=== PATIENT | male | born 1975 | race African-American/Black ===

== ENCOUNTER 2018-07-26 09:35 | Emergency (ER) | payer OTHER ==
[~2018-07-26] VITALS: Ht 190.5 cm; Wt 127.0 kg
[2018-07-26] MEDS ORDERED: LISINOPRIL10 MG PO (09:49)
[2018-07-26 10:26] VITALS: BP 146/101
[2018-07-26] MEDS ORDERED: COLCHICINE0.6 MG PO (10:26)
[2018-07-26] MEDS ORDERED: MOBIC15 MG PO (10:26)
[2018-07-26] MEDS ORDERED: NORCO 5-325 TA1 EACH PO (10:26)
== END 2018-07-26 10:34 | disposition home or self-care (01) ==
LOC: ER 09:35
DX: M10.9 Gout, unspecified (principal)

== ENCOUNTER 2019-07-03 04:59 | Emergency (ER) | payer OTHER ==
[~2019-07-03] VITALS: Ht 193 cm; Wt 127.0 kg
--- NOTE | ~2019-07-03 | EMS ---
[address] [address] EMS Patient Care Report Name: NADIR KNIGHT Room #: DEP LUCINA Napier#: [id number] Admission: 07/03/19 ������������������ Attend Phys: Discharge: 07/03/19 ������������������ Date of : 73 Report #: [id number] THIS REPORT FOR: //name// Report Transmitted: 07/06/2019 09:04 EMS Care Summary [facility] Incident [id number] @ 07/03/2019 04:27 Incident Location [address] [place] [address] Patient NADIR KNIGHT Male, 44 Years 1975 Patient Address [address] [place] [address] Patient History Hypertension, Patient Allergies No known allergies, Patient Medications Lisinopril, Chief Complaint "I woke up the dizzy." Disposition Transported No Lights/[place] Dispatch Reason Sick Person Transported To [facility] Narrative "I woke up dizzy." [facility] [address] [place] [address] EMS Patient Care Report Name: NADIR KNIGHT Room #: DEP ER TruptiBrenna#: [id number] Admission: 07/03/19 ������������������ Attend Phys: Discharge: 07/03/19 ������������������ Date of : 73 Report #: [id number] Dispatched to this location code 3 for a male PT with complaints of feeling dizzy. Arrive on scene to find the PT sitting in a chair with at side. PT reports he went to bed around "11 PM." He reports he got up around "1 AM" to use the restroom and reports he felt a little "off" at that time. PT went back to bed and then woke up again around "4:30 AM." He reports he woke up dizzy. PT reports he feels like he is spinning in the room. He denies any recent sinus or ear infections. PT denies any recent falls or trauma. PT denies any recent fevers. PT denies any weakness or numbness to one side of his body. PT denies any visual problems. PT denies any chest pain or SOA. PT denies any pain. Initial Vitals @04:50P: 91,R: 18,BP: 155/90,GCS: 15,SpO2: 100,Revised Trauma: 12, @04:43MI Suspected: false @04:41P: 88,R: 18,BP: 155/86,Pain: 0/10,GCS: 15,Glucose: 104,SpO2: 100,Revised Trauma: 12, Assessments @04:48MENTAL:Person Oriented,Time Oriented,Event Oriented,Place Oriented,SKIN:HEENT:Head/Face: No Abnormalities,Neck/Airway: No Abnormalities,LUNG SOUNDS:General: No Abnormalities,ABDOMEN:General: No Abnormalities,PELVIS//GI:EXTREMITIES:PULSE:NEURO: Impression Dizziness Procedures @04:4312-Lead ECG Timeline 04:26,Call Received 04:26,Psap Call 04:27,Dispatched 04:28,En Route 04:34,On Scene 04:41,At Patient 04:41,BP: 155/86 M,PULSE: 88,RR: 18 R,SPO2: 100 Ox,ETCO2: ,B,PAIN: 0,GCS: 15, 04:43,12-Lead ECG, 04:43,BP: / M,PULSE: ,RR: R,SPO2: Ox,ETCO2: ,BG: ,PAIN: ,GCS: , 04:50,Depart Scene 04:50,BP: 155/90 M,PULSE: 91,RR: 18 R,SPO2: 100 Ox,ETCO2: ,BG: ,PAIN: ,GCS: 15, 04:56,At Destination 05:09,Call Closed Disclaimer [email or web address] Copyright [address] [employer] [address] [address] EMS Patient Care Report Name: NADIR KNIGHT CORTEZ [id number] Admission: 07/03/19 ������������������ Attend Phys: Discharge: 07/03/19 ������������������ Date of : 73 Report #: [id number] This EMS Care Summary contains data elements from the applicable legal record (which may be displayed differently). It is designed to provide pertinent information for the following purposes: continuity of care, clinical quality, and state data reporting. The complete legal record is available to ED staff and administrators of the receiving hospital in [facility] Patient Tracker. All data is provided "as is."
[~2019-07-03 04:59] MED LIST: COLCHICINE0.6 MG PO; LISINOPRIL10 MG PO; MOBIC15 MG PO; NORCO 5-325 TA1 EACH PO
[2019-07-03 05:34] LABS: ABSOLUTE NEUTROPHILS 2.4 thou/uL (1.4-8.2); BASOPHILS 3.5 % (0.0-2.0); EOSINOPHILS 7.6 % (0.0-3.0); HEMATOCRIT 46.6 % (42.0-52.0); HEMOGLOBIN 15.1 gm/dL (14.0-18.0); LYMPHOCYTES 35.5 % (24.0-44.0); MCH 24.5 pg (26.0-34.0); MCHC 32.3 g/dL (28.0-37.0); MCV 75.8 fL (80.0-100.0); MONOCYTES 11.7 % (1.0-8.0); PLATELET COUNT 295 thou/uL (150-400); POLYS 41.7 % (36.0-66.0); RBC 6.15 mil/uL (4.50-6.00); RDW 14.6 % (10.5-14.5); WBC 5.8 thou/uL (4.0-11.0)
[2019-07-03] MEDS ORDERED: ANTIVERT25 MG PO (05:48)
[2019-07-03 05:57] LABS: ANION GAP 10 mmol/L (7-16); BUN 14 mg/dL (7-18); CALCIUM 9.5 mg/dL (8.5-10.1); CHLORIDE 106 mmol/L (98-107); CO2 26 mmol/L (21-32); CREATININE 1.2 mg/dL (0.7-1.3); GLUCOSE 121 mg/dL (74-106); POTASSIUM 4.3 mmol/L (3.5-5.1); SODIUM 142 mmol/L (136-145)
[2019-07-03 06:05] LABS: TROPONIN-I <0.06 ng/mL (<0.06)
[2019-07-03 06:37] VITALS: BP 142/91
--- NOTE | 2019-07-03 11:58 | EKG ---
[address] [address] [facility] [place] [address] ELECTROCARDIOGRAM REPORT Name: NADIR KNIGHT Room #: DEP Karthikeyan#: [id number] ������������������ Admission: 07/03/19 ������������������ Attend Phys: Discharge: 07/03/19 ������������������ Date of : 73 Report #: [id number] ����������������������������������������������������������������� [id number] THIS REPORT FOR: //name// [facility]ly [facility] ED Test Date: 2019-07-03 Test Time: 05:04:37 Pat Name: NADIR KNIGHT Department: Room: Gender: [employer]: BAYLEE : 1975 Requested By: Amaury Crump Order Number: [id number] MD: Ricky Romero Measurements Intervals [place] Rate: 84 P: 43 VT: 164 QRS: 17 QRSD: 85 T: -14 QT: 366 QTc: 433 Interpretive Statements Sinus rhythm Borderline T abnormalities, inferior leads No previous ECG available for comparison Electronically Signed On 07-03-2019 11:58:44 CDT by Ricky Romero [email or web address] ��������������������������������������������� <ELECTRONICALLY SIGNED> ���������������������������������������� By: Ricky Romero MD, [facility] ��������������������������������������������� 07/03/19 [id number] Ricky Romero MD, FAC /EPI
== END 2019-07-03 07:12 | disposition home or self-care (01) ==
LOC: ER 04:59
PROVIDERS: Emergency Medicine
DX: R42 Dizziness and giddiness (principal); I10 Essential (primary) hypertension